=== PATIENT | female | born 1995 | race Caucasian/White ===

== ENCOUNTER 2021-07-31 15:23 | Inpatient (IN) ==
[2021-07-31] MEDS ORDERED: Famotidine 20 MG/2 ML VIAL IVP PRN (16:03)
[2021-07-31] MEDS ORDERED: *HR* Nalbuphine 10 MG/ML AMPUL IV PRN (16:03)
[2021-07-31] MEDS ORDERED: Ondansetron 4 MG/2 ML VIAL IVP PRN ×2 (16:03→20:46)
[2021-07-31] MEDS ORDERED: Lidocaine 1% 20 ML MDV INFILT PRN (16:03)
[2021-07-31] MEDS ORDERED: Naloxone 0.4 MG/ML INJ IVP PRN ×2 (16:03→20:46)
[2021-07-31] MEDS ORDERED: Metoclopramide 10 MG/2 ML VIAL IVP PRN (16:03)
[2021-07-31] MEDS ORDERED: Ringers Solution, Lactated 1,000 ML IVC SCH (16:15)
[2021-07-31] MEDS ORDERED: Oxytocin 20 units/ LR 1000 mL 20 UNIT/1,000 ML BAG IVC SCH (16:30)
[2021-07-31 16:31] LABS: Basophils % 0.2 %; Eosinophils % 0.1 %; Hematocrit 42.3 % (35.3-44.9); Hemoglobin 14.6 g/dL (11.5-15.4); Immature Granulocytes % 0.4 % (0-4); Lymphocytes # 1.7 K/mcL (0.6-4.6); Lymphocytes % 10.4 %; Mean Corpuscular HGB Conc 34.5 g/dL (31.6-35.5); Mean Corpuscular Hemoglobin 29.3 pg (28.0-33.3); Mean Corpuscular Volume 84.9 fL (83.0-100.0); Mean Platelet Volume 10.9 fL (9.4-12.4); Monocytes # 0.8 K/mcL (0.0-1.3); Monocytes % 4.8 %; Neutrophils # 13.9 K/mcL (1.6-8.9); Platelet Count 252 K/mcL (140-400); Red Blood Count 4.98 M/mcL (3.82-4.97); Red Cell Distribution Width 12.8 % (11.5-14.5); Segmented Neutrophils % 84.1 %; White Blood Count 16.6 K/mcL (4.3-11.1)
[2021-07-31 16:35] LABS: Protein/Creatinine Ratio,Urine 0.64 mg/mg (0.00-0.20)
[2021-07-31 16:47] LABS: Alanine Aminotransferase 13 Units/L (7-52); Aspartate Amino Transferase 17 Units/L (13-39); BUN/Creatinine Ratio 16 (6-26); Blood Urea Nitrogen 8 mg/dL (6-20); Lactate Dehydrogenase 165 Units/L (140-271); Uric Acid 7.4 mg/dL (2.3-7.6); eGFR For African Americans > 60 (> 60); eGFR For Non-African Americans > 60 (> 60)
[2021-07-31 17:01] LABS: Influenza A PCR Negative (Negative); Influenza B PCR Negative (Negative); Resp. Syncytial Virus PCR Negative (Negative)
[2021-07-31 17:13] LABS: Varicella Zoster IgG Antibody Positive
[2021-07-31 17:17] LABS: SARS-CoV-2 by PCR (In House) Negative (Negative)
[2021-07-31] MEDS ORDERED: Epidural Premix (fent/bupiv) 110 ML EP ONE (20:05)
[2021-07-31] MEDS ORDERED: EPHEDrine 50 MG/ML VIAL IVP PRN (20:46)
[2021-07-31] MEDS ORDERED: *HR* FentaNYL (PF) 100 MCG/2 ML VIAL EP ONE (20:46)
[2021-07-31] MEDS ORDERED: Ropivacaine/PF 0.2% 20 ML VIAL EP ONE (20:46)
[2021-07-31] MEDS ORDERED: Epidural Premix (fent/bupiv) 110 ML EP SCH (21:00)
[2021-08-01] MEDS ORDERED: Benzocaine/Menthol 56 GM AEROSOL SPRAY TP PRN (02:09)
[2021-08-01] MEDS ORDERED: Measles/Mumps/Rubella Vacc 0.5 ML VIAL SQ PRN (02:09)
[2021-08-01] MEDS ORDERED: Ondansetron ODT 4 MG TAB.RAPDIS SL PRN (02:09)
[2021-08-01] MEDS ORDERED: Lanolin 7 G OINT...G. TP PRN (02:09)
[2021-08-01] MEDS ORDERED: Oxytocin 20 units/ LR 1000 mL 20 UNIT/1,000 ML BAG IVC ONE (02:09)
[2021-08-01] MEDS ORDERED: Rho Immune Globulin 1,500 UNIT SYRINGE IM PRN (02:09)
[2021-08-01] MEDS ORDERED: Oxytocin 20 units/ LR 1000 mL 20 UNIT/1,000 ML BAG IVC SCH (02:15)
[2021-08-01 06:38] LABS: Basophils % 0.2 %; Eosinophils % 0.1 %; Hematocrit 37.1 % (35.3-44.9); Immature Granulocytes % 0.4 % (0-4); Lymphocytes # 1.9 K/mcL (0.6-4.6); Lymphocytes % 10.8 %; Mean Corpuscular HGB Conc 33.4 g/dL (31.6-35.5); Mean Corpuscular Hemoglobin 28.6 pg (28.0-33.3); Mean Corpuscular Volume 85.5 fL (83.0-100.0); Mean Platelet Volume 10.9 fL (9.4-12.4); Monocytes % 5.5 %; Neutrophils # 14.5 K/mcL (1.6-8.9); Platelet Count 235 K/mcL (140-400); Red Blood Count 4.34 M/mcL (3.82-4.97); White Blood Count 17.4 K/mcL (4.3-11.1)
[2021-08-01 06:41] LABS: Hemoglobin 12.4 g/dL (11.5-15.4)
[2021-08-01 10:45] LABS: Amphetamine Screen,Urine Negative ng/mL (Cutoff=1000); Barbiturate Screen,Urine Negative ng/mL (Cutoff=200); Benzodiazepines Screen,Urine Negative ng/mL (Cutoff=200); Cannabinoid Screen,Urine Negative ng/mL (Cutoff = 50); Cocaine Screen,Urine Negative ng/mL (Cutoff= 300); Opiate Screen,Urine Negative ng/mL (Cutoff=300); Phencyclidine Screen,Urine Negative ng/mL (Cutoff=25)
[2021-08-01] MEDS: Acetaminophen 325 MG TABLET PO SCH ×2 (11:18→20:13)
[2021-08-01] MEDS: Ibuprofen 600 MG TABLET PO SCH ×2 (11:18→20:13)
[2021-08-01] MEDS: Prenatal Vit/FA 1 EACH TABLET PO SCH (11:19)
[2021-08-01 11:38] LABS: Hepatitis B Surface Antigen Nonreactive (Nonreactive)
[2021-08-02] MEDS: Ibuprofen 600 MG TABLET PO SCH (03:41)
[2021-08-02] MEDS: Acetaminophen 325 MG TABLET PO SCH (03:42)
[2021-08-02] MEDS: Prenatal Vit/FA 1 EACH TABLET PO SCH (07:53)
[2021-08-02 16:25] VITALS: BP 124/85; PULSE 89; TEMP 98.1; O2SAT 100
== END 2021-08-02 18:00 | disposition home or self-care (01) | DRG 807 ==
LOC: 1NENULAB 15:23 → 1NENUOBS 08-01 04:52
PROVIDERS: ADMIT Student in an Organized Health Care Education/Training Program; ATTEND Student in an Organized Health Care Education/Training Program